=== PATIENT | male | born 1985 | race Caucasian/White ===

== ENCOUNTER → 2016-04-12 | Outpatient (CLI) | payer OTHER ==
[2016-04-12 09:31] LABS: ALBUMIN 4.3 GM/DL (3.2-5.2); ALBUMIN/GLOBULIN RATIO 1.39 (1.00-1.93); ALKALINE PHOSPHATASE 66 U/L (45-117); ALT/SGPT 44 U/L (12-78); ANION GAP 8 MEQ/L (8-16); AST/SGOT 24 U/L (15-37); BILIRUBIN,TOTAL 0.4 MG/DL (0.2-1.0); BLOOD UREA NITROGEN 12 MG/DL (7-18); CALCIUM LEVEL 9.2 MG/DL (8.5-10.1); CARBON DIOXIDE LEVEL 30 MEQ/L (21-32); CHLORIDE LEVEL 107 MEQ/L (98-107); CHOLESTEROL LEVEL 176 MG/DL (<200); CREATININE FOR GFR 1.03 MG/DL (0.70-1.30); GLOMERULAR FILTRATION RATE > 60.0 (>60); GLUCOSE, FASTING 90 MG/DL (70-105); POTASSIUM SERUM 4.6 MEQ/L (3.5-5.1); SODIUM LEVEL 145 MEQ/L (136-145); TOTAL PROTEIN 7.4 GM/DL (6.4-8.2); TRIGLYCERIDES LEVEL 198 MG/DL (<150)
== END ==
LOC: M WUC 08:29
PROVIDERS: ATTEND Emergency Medicine
DX: E78.2 Mixed hyperlipidemia (principal)

== ENCOUNTER 2017-04-30 18:57 | Emergency (ER) | payer OTHER, BC ==
[2017-04-30 20:45] LABS: CPK CREATINE PHOSPHOKINASE 115 U/L (39-308); MB/CK RELATIVE INDEX 0.86 (< OR =4); TROPONIN I < 0.02 NG/ML (< 0.10)
== END 2017-04-30 21:30 | disposition home or self-care (01) ==
LOC: M ED 18:57
DX: M94.0 Chondrocostal junction syndrome [Tietze] (principal); R05 Cough; M54.2 Cervicalgia
CPT/HCPCS: 71046

== ENCOUNTER → 2017-11-24 | Outpatient (CLI) | payer OTHER ==
[2017-11-24 14:11] LABS: ALBUMIN/GLOBULIN RATIO 1.25 (1.00-1.93); ALKALINE PHOSPHATASE 70 U/L (45-117); ALT/SGPT 54 U/L (12-78); ANION GAP 4 MEQ/L (8-16); AST/SGOT 27 U/L (7-37); BILIRUBIN,TOTAL 0.4 MG/DL (0.2-1.0); BLOOD UREA NITROGEN 11 MG/DL (7-18); CALCIUM LEVEL 8.5 MG/DL (8.5-10.1); CARBON DIOXIDE LEVEL 32 MEQ/L (21-32); CHLORIDE LEVEL 106 MEQ/L (98-107); CHOLESTEROL LEVEL 160 MG/DL (<200); CHOLESTEROL RISK RATIO 4.571 (<5); CREATININE FOR GFR 0.89 MG/DL (0.70-1.30); GLOMERULAR FILTRATION RATE > 60.0 (>60); GLUCOSE, FASTING 84 MG/DL (70-100); HDL CHOLESTEROL 35 MG/DL (>40); LDL CHOLESTEROL 98 MG/DL (<100); NON-HDL-C 125 MG/DL; POTASSIUM SERUM 4.7 MEQ/L (3.5-5.1); SODIUM LEVEL 142 MEQ/L (136-145); TOTAL PROTEIN 7.2 GM/DL (6.4-8.2); TRIGLYCERIDES LEVEL 135 MG/DL (<150)
== END ==
LOC: M WUC 09:07
DX: E78.2 Mixed hyperlipidemia (principal)

== ENCOUNTER 2018-10-12 20:46 | Emergency (ER) | payer OTHER ==
[~2018-10-12] VITALS: Ht 172.7 cm; Wt 65.9 kg
[~2018-10-12 20:46] MED LIST: ATOR1TAB21 PO; CEFD1CAP8 PO; CYCL10TA PO; FLON1SPR; FOCA25CA PO
[2018-10-12 20:59] VITALS: BP 137/82
[2018-10-12] MEDS ORDERED: KETOROLAC 60 MG/2 ML VIAL (J1885) IM ONE (22:45)
[2018-10-12] MEDS ORDERED: ACETAMINOPHEN 325 MG TAB PO ONE (22:45)
[2018-10-12] MEDS ORDERED: METHOCARBAMOL 750 MG TAB PO ONE (22:45)
[2018-10-12] MEDS ORDERED: ROBA750T4 PO (23:57)
[2018-10-12] MEDS ORDERED: NAPR-885 PO (23:57)
== END 2018-10-13 00:04 | disposition home or self-care (01) ==
LOC: M ED 20:46
DX: S39.012A Strain of muscle, fascia and tendon of lower back, initial encounter (principal); X58.XXXA Exposure to other specified factors, initial encounter; Y92.89 Other specified places as the place of occurrence of the external cause; M54.30 Sciatica, unspecified side; F90.9 Attention-deficit hyperactivity disorder, unspecified type; Z79.899 Other long term (current) drug therapy; Z88.0 Allergy status to penicillin
CPT/HCPCS: 96372; 99283; J1885

== ENCOUNTER 2018-10-22 18:05 | Emergency (ER) | payer OTHER ==
[~2018-10-22] VITALS: Ht 172.7 cm; Wt 66.2 kg
[~2018-10-22 18:05] MED LIST changes: +NAPR-885 PO; +ROBA750T4 PO
[2018-10-22] MEDS ORDERED: TIZA4TAB4 (18:15)
[2018-10-22 20:36] VITALS: BP 126/68
--- NOTE | 2018-10-22 20:45 | REPVR ---
EXAM: MR Lumbar Spine Without Contrast. EXAM DATE/TIME: 10/22/2018 7:09 PM CLINICAL HISTORY: 33 years old, male; Injury or trauma; Injury history: Pulling heavy object; Late effect from previous injury; Rupture of lumbar intervertebral disc and sprain or strain, lumbar ligaments; Injury date: Sep; Additional info: Pulling felt pop 10 days ago, now anal leakage/tingling TECHNIQUE: Imaging protocol: Multiplanar magnetic resonance images of the lumbar spine without intravenous contrast. COMPARISON: No relevant prior studies available. FINDINGS: Vertebrae: The marrow space has a normal signal intensity. Spinal cord: The conus is normal in size and ending at L1. The conus has normal signal intensity. L3-L4: There is mild bulge of the disc. L4-L5: There is a small central disc protrusion causing mild impression on the anterior aspect of the thecal sac. L5-S1: There is a small left paracentral and lateral disc protrusion causing impression on the anterior left side of the thecal sac and extending into the caudal aspect of the left L5 neural foramina. Soft tissues: Unremarkable. IMPRESSION: The L5-S1 level demonstrates a small left paracentral and lateral disc protrusion causing mild impression on the anterior left side of the thecal sac and extending into the caudal aspect of the left L5 neural foramina. Electronically signed by: Jonathan Mcghee On 10/22/2018 20:45:15 PM
[2018-10-22] MEDS ORDERED: LIDO1PAD TOP (21:05)
[2018-10-22] MEDS ORDERED: LIDOCAINE 5% (LIDODERM) PATCH TD ONE (21:15)
[2018-10-23] MEDS ORDERED: **NOTE PATIENT COMMENT** MISC XX SCH (21:00)
--- NOTE | 2018-10-25 07:42 | ED PDOC ---
Post-Departure Follow-Up monique hyman faxed report of mri ls spine for fu Flor Flores MD Oct 25, 2018 07:42
== END 2018-10-22 21:25 | disposition home or self-care (01) ==
LOC: M ED 18:05
DX: M51.27 Other intervertebral disc displacement, lumbosacral region (principal); R32 Unspecified urinary incontinence; E78.5 Hyperlipidemia, unspecified; Z88.0 Allergy status to penicillin; Z79.899 Other long term (current) drug therapy; Z79.1 Long term (current) use of non-steroidal anti-inflammatories (NSAID)

== ENCOUNTER 2019-01-12 21:11 | Emergency (ER) | payer OTHER ==
[~2019-01-12] VITALS: Ht 172.7 cm; Wt 84.1 kg
[~2019-01-12 21:11] MED LIST changes: +LIDO1PAD TOP; +TIZA4TAB4
[2019-01-12] MEDS ORDERED: FOCA5TAB PO (21:29)
[2019-01-12] MEDS ORDERED: FOCA30CA PO (21:29)
[2019-01-12] MEDS ORDERED: ASPIRIN 81 MG CHEW TABLET PO ONE (21:45)
[2019-01-12 21:55] LABS: BASO # 0.1 10^3/uL (0.0-0.2); BASO % 0.6 % (0.0-1.0); EOS # 0.1 10^3/uL (0.0-0.5); HEMATOCRIT 50.7 % (42.0-52.0); HEMOGLOBIN 16.5 g/dl (13.5-17.5); LYMPH # 1.6 10^3/uL (1.5-5.0); LYMPH % 21.1 % (24.0-44.0); MEAN CORPUSCULAR HEMOGLOBIN 30.8 pg (27.0-33.0); MEAN CORPUSCULAR HGB CONC 32.5 g/dl (32.0-36.5); MEAN CORPUSCULAR VOLUME 94.6 fl (80.0-96.0); MONO # 0.6 10^3/uL (0.0-0.8); MONO % 7.1 % (0.0-5.0); NEUTROPHILS # 5.4 10^3/uL (1.5-8.5); NEUTROPHILS % 69.8 % (36.0-66.0); PLATELET COUNT, AUTOMATED 255 10^3/uL (150-450); RED BLOOD COUNT 5.36 10^6/uL (4.30-6.10); WHITE BLOOD COUNT 7.8 10^3/uL (4.0-10.0)
[2019-01-12 21:56] LABS: VENOUS BASE EXCESS 0.1 (-2.0-2.0); VENOUS HCO3 25.6 MEQ/L (23.0-27.0); VENOUS PARTIAL PRESSURE CO2 44.3 mmHg (38.0-50.0); VENOUS PARTIAL PRESSURE O2 40.4 mmHg (30.0-50.0); VENOUS PH 7.379 UNITS (7.330-7.430); VENOUS STANDARD HCO3 23.9 MEQ/L; VENOUS TOTAL CO2 26.9 MEQ/L (24.0-28.0)
[2019-01-12 22:26] LABS: ALBUMIN 4.5 GM/DL (3.2-5.2); ALT/SGPT 72 U/L (12-78); BILIRUBIN,DIRECT < 0.1 MG/DL (0.0-0.2); BILIRUBIN,TOTAL 0.3 MG/DL (0.2-1.0); BLOOD UREA NITROGEN 12 MG/DL (7-18); CALCIUM LEVEL 9.4 MG/DL (8.5-10.1); CARBON DIOXIDE LEVEL 29 MEQ/L (21-32); CHLORIDE LEVEL 103 MEQ/L (98-107); CK-MB VALUE MASS < 1.0 NG/ML (<3.6); CPK CREATINE PHOSPHOKINASE 134 U/L (39-308); CREATININE FOR GFR 1.04 MG/DL (0.70-1.30); GLOMERULAR FILTRATION RATE > 60.0 (>60); GLUCOSE, FASTING 102 MG/DL (70-100); LIPASE 84 U/L (73-393); MAGNESIUM LEVEL 2.3 MG/DL (1.8-2.4); MB/CK RELATIVE INDEX 0.75 (< OR =4); POTASSIUM SERUM 3.9 MEQ/L (3.5-5.1); SODIUM LEVEL 138 MEQ/L (136-145); TOTAL PROTEIN 7.9 GM/DL (6.4-8.2); TROPONIN I < 0.02 NG/ML (< 0.10)
[2019-01-12] MEDS ORDERED: KETOROLAC 30 MG/ML VIAL (J1885) IV ONE (22:45)
[2019-01-12 23:12] VITALS: BP 105/67
--- NOTE | 2019-01-12 23:52 | ECGEPIP ---
[facility] - ED Test Date: 2019-01-12 Pat Name: ADONIS PANCHAL Department: Room: - Gender: Male Remedial Masseur: chery : 1985 Requested By: Elieser Alvarez Order Number: [id number] Reading MD: Elieser Hou Measurements Intervals [place] Rate: 93 P: 74 [place]: 116 QRS: 97 QRSD: 96 T: 55 QT: 338 QTc: 421 Interpretive Statements SINUS RHYTHM WITH SINUS ARRHYTHMIA WITH SHORT [place] INTERVAL BORDERLINE RIGHT AXIS DEVIATION SIMILAR TO 04/30/17 Electronically Signed on 01-12-2019 23:52:25 EST by Elieser oHu
--- NOTE | 2019-01-13 08:14 | REP ---
Chest x-ray: Two views. History: Chest pain . Comparison study: April 30, 2017 . Findings: The lungs are well inflated and free of infiltrate. The pleural angles are sharp. The heart size is normal. Pulmonary vasculature is not increased. No significant bony abnormality is seen. There is a mild levoconvex curve in the upper thoracic spine unchanged. Impression: Negative chest x-ray. Electronically Signed by German Smith MD 01/13/2019 08:05 A
== END 2019-01-12 23:47 | disposition home or self-care (01) ==
LOC: M ED 21:11
DX: R07.9 Chest pain, unspecified (principal); R94.31 Abnormal electrocardiogram [ECG] [EKG]; E78.5 Hyperlipidemia, unspecified; Z88.0 Allergy status to penicillin; Z79.899 Other long term (current) drug therapy
CPT/HCPCS: 71046; 80048; 80076; 82550; 82553; 82803; 83690; 83735; 84484; 85025; 85379; 93005; 93041; 94760; 96374; 99284; J1885

== ENCOUNTER → 2019-05-17 | Outpatient (CLI) | payer OTHER ==
[~2019-05-17] MED LIST changes: +FOCA30CA PO; +FOCA5TAB PO
[2019-05-17 16:34] LABS: INFLUENZA A AMPLIFICATION NEGATIVE (NEGATIVE); INFLUENZA B AMPLIFICATION NEGATIVE (NEGATIVE)
== END ==
LOC: M LABSMTC 13:32
PROVIDERS: ATTEND Family Medicine
DX: Z11.59 Encounter for screening for other viral diseases (principal); Z20.828 Contact with and (suspected) exposure to other viral communicable diseases
CPT/HCPCS: 87502; U0002

== ENCOUNTER 2019-08-20 22:24 | Emergency (ER) | payer OTHER ==
[~2019-08-20] VITALS: Ht 172.7 cm; Wt 68.2 kg
[2019-08-20 22:24] VITALS: BP 133/80
[~2019-08-20 22:24] MED LIST changes: +CYCL-707 PO; -CYCL10TA PO
[2019-08-20] MEDS ORDERED: ATOR1TAB21 PO (22:41)
[2019-08-20] MEDS ORDERED: LIDOCAINE VISCOUS 2% SOLN 15ML UDC SS ONE (23:15)
== END 2019-08-21 01:25 | disposition home or self-care (01) ==
LOC: M ED 22:24
DX: R13.10 Dysphagia, unspecified (principal); Z79.899 Other long term (current) drug therapy; Z88.0 Allergy status to penicillin; Z88.1 Allergy status to other antibiotic agents

== ENCOUNTER → 2020-10-26 | Outpatient (CLI) | payer BC ==
[2020-10-26 12:46] LABS: ALBUMIN 3.8 GM/DL (3.2-5.2); ALT/SGPT 39 U/L (12-78); BILIRUBIN,TOTAL 0.4 MG/DL (0.2-1.0); BLOOD UREA NITROGEN 11 MG/DL (7-18); CARBON DIOXIDE LEVEL 29 MEQ/L (21-32); CHLORIDE LEVEL 107 MEQ/L (98-107); CHOLESTEROL LEVEL 322 MG/DL (<200); CHOLESTEROL RISK RATIO 7.488 (<5); CREATININE FOR GFR 0.83 MG/DL (0.70-1.30); GLOMERULAR FILTRATION RATE > 60.0 (>60); GLUCOSE, FASTING 89 MG/DL (70-100); HDL CHOLESTEROL 43 MG/DL (>40); LDL CHOLESTEROL 207 MG/DL (<100); NON-HDL-C 279 MG/DL; POTASSIUM SERUM 4.2 MEQ/L (3.5-5.1); SODIUM LEVEL 140 MEQ/L (136-145); TOTAL PROTEIN 7.2 GM/DL (6.4-8.2); TRIGLYCERIDES LEVEL 360 MG/DL (<150)
== END ==
LOC: M LAB 11:14
PROVIDERS: ATTEND Nurse Practitioner Family
DX: E78.2 Mixed hyperlipidemia (principal)

== ENCOUNTER 2024-09-28 11:13 | Emergency (ER) | payer OTHER ==
[~2024-09-28] VITALS: Ht 172.7 cm; Wt 70.5 kg
[~2024-09-28 11:13] MED LIST changes: -CEFD1CAP8 PO; +CEFD1CAP9 PO; +TIZA10TA; -TIZA4TAB4
[2024-09-28 11:44] LABS: BASO # 0.1 10^3/uL (0.0-0.2); BASO % 0.7 % (0.0-1.0); EOS # 0.1 10^3/uL (0.0-0.5); EOS % 1.2 % (0.0-3.0); LYMPH # 1.1 10^3/uL (1.5-5.0); LYMPH % 15.2 % (24.0-44.0); MONO # 0.6 10^3/uL (0.0-0.8); MONO % 8.0 % (2.0-8.0); NEUTROPHILS # 5.6 10^3/uL (1.5-8.5); NEUTROPHILS % 74.8 % (36.0-66.0); PLATELET COUNT, AUTOMATED 234 10^3/uL (150-450)
[2024-09-28] MEDS: NS (Normal Saline) 0.9% 1,000 ML IV SCH (11:49)
[2024-09-28] MEDS: ASPIRIN 81 MG CHEWABLE TABLET PO ONE (11:49)
[2024-09-28 12:21] LABS: INR 1.07
[2024-09-28] MEDS ORDERED: HOME MED LIST COMPLETE! XX SCH (12:55)
[2024-09-28 13:15] LABS: CALCIUM LEVEL 9.2 MG/DL (8.5-10.1); CARBON DIOXIDE LEVEL 27 MMOL/L (20-31); CHLORIDE LEVEL 102 MMOL/L (98-107); CK-MB VALUE MASS < 1.0 NG/ML (<3.6); CPK CREATINE PHOSPHOKINASE 81 U/L (46-171); CREATININE FOR GFR 0.93 MG/DL (0.70-1.30); GLOMERULAR FILTRATION RATE > 90.0 (>60); POTASSIUM SERUM 4.0 MMOL/L (3.5-5.1); SODIUM LEVEL 140 MMOL/L (136-145)
[2024-09-28 14:36] LABS: CK-MB VALUE MASS < 1.0 NG/ML (<3.6)
[2024-09-28 14:37] LABS: CPK CREATINE PHOSPHOKINASE 76 U/L (46-171)
[2024-09-28 14:46] VITALS: BP 112/59; TEMP 98.4; O2SAT 97
== END 2024-09-28 14:56 | disposition home or self-care (01) ==
LOC: EDBD 11:13 → M ED 11:13
DX: R07.9 Chest pain, unspecified (principal); Z88.0 Allergy status to penicillin; Z88.1 Allergy status to other antibiotic agents

== ENCOUNTER → 2024-10-13 | Outpatient (CLI) | payer OTHER | LOC: M CARPUL 15:12 | PROVIDERS: ATTEND Student in an Organized Health Care Education/Training Program | DX: R07.9 Chest pain, unspecified (principal) ==

== ENCOUNTER → 2024-10-13 | Outpatient (REF) | payer OTHER ==
[2024-10-13 14:31] LABS: CHOLESTEROL LEVEL 288 MG/DL (<200); CHOLESTEROL RISK RATIO 7.89 (<5); NON-HDL-C 251.5 MG/DL; TRIGLYCERIDES LEVEL 467 MG/DL (<150)
== END ==
LOC: M LABWUC 12:46
PROVIDERS: ATTEND Student in an Organized Health Care Education/Training Program
DX: R07.9 Chest pain, unspecified (principal)